=== PATIENT | female | born 1985 | race Caucasian/White ===

== ENCOUNTER 2022-04-10 19:55 | Emergency (ER) | payer OTHER, MEDICAID ==
[2022-04-11] MEDS ORDERED: NORFLEX 100 MG100 MG PO (01:39)
[2022-04-11] MEDS ORDERED: IBUPROFEN600 MG PO (01:39)
== END 2022-04-11 02:30 | disposition home or self-care (01) ==
LOC: ER1 19:55
DX: S13.4XXA Sprain of ligaments of cervical spine, initial encounter (principal); S23.3XXA Sprain of ligaments of thoracic spine, initial encounter; S33.5XXA Sprain of ligaments of lumbar spine, initial encounter; R51.9 Headache, unspecified; V49.40XA Driver injured in collision with unspecified motor vehicles in traffic accident, initial encounter; Y92.410 Unspecified street and highway as the place of occurrence of the external cause
CPT/HCPCS: 70450; 72125; 72128; 72131; 84703; 99284